=== PATIENT | female | born 1980 | race Caucasian/White ===

== ENCOUNTER 2021-04-28 10:22 | Emergency (ER) | payer OTHER ==
[~2021-04-28] VITALS: Ht 162.6 cm; Wt 71.7 kg
[2021-04-28] MEDS ORDERED: PRENTAB53 PO (10:30)
[2021-04-28 11:57] LABS: BASO % 0.3 % (0.0-1.0); EOS % 0.5 % (0.0-3.0); HEMATOCRIT 42.9 % (36.0-47.0); HEMOGLOBIN 13.7 g/dl (12.0-15.5); LYMPH # 1.3 10^3/uL (1.5-5.0); LYMPH % 17.4 % (24.0-44.0); MEAN CORPUSCULAR HEMOGLOBIN 28.8 pg (27.0-33.0); MEAN CORPUSCULAR HGB CONC 31.9 g/dl (32.0-36.5); MEAN CORPUSCULAR VOLUME 90.1 fl (80.0-96.0); MONO # 0.4 10^3/uL (0.0-0.8); MONO % 4.8 % (2.0-8.0); NEUTROPHILS # 5.9 10^3/uL (1.5-8.5); NEUTROPHILS % 76.6 % (36.0-66.0); PLATELET COUNT, AUTOMATED 345 10^3/uL (150-450); RED BLOOD COUNT 4.76 10^6/uL (4.00-5.40); WHITE BLOOD COUNT 7.7 10^3/uL (4.0-10.0)
--- NOTE | 2021-04-28 12:28 | REP ---
INDICATION: vaginal bleeding, 10 weeks . COMPARISON: None. TECHNIQUE: Transvesical and transvaginal imaging FINDINGS: Uterus measures 10.7 x 6.3 x 7 cm. Within the uterus there is an anechoic structure with increased echoes surrounding it consistent with a decidual reaction. This is located in the lower uterine segment/upper cervical region. Within the gestational sac there is echogenic material consistent with a pole the mean crown-rump length measurement of which is consistent with a 6 week 3 day gestational age. Doppler interrogation of the pole shows no evidence of cardiac activity. The left ovary was not seen transvesically or transvaginal appeared The right ovary measures 2.5 x 1.4 x 2.2 cm and is within normal limits with an RI of 0.69 Seen within the fundal portion of the uterus a mixed echo structure was noted measuring approximately 4 x 4.8 x 4.2 cm IMPRESSION: The gestational sac is positioned low within the uterus as described above, in addition, there is no cardiac activity. Findings consistent with impending spontaneous , however, clinical correlation and close follow-up is recommended. There is evidence of uterine myomatous changes as described above. I have no priors for comparison. Other findings as described above. <Electronically signed by Suleman Martines > 04/28/21 [id number]
[2021-04-28 12:48] LABS: BLOOD UREA NITROGEN 5 MG/DL (7-18); CALCIUM LEVEL 8.7 MG/DL (8.5-10.1); CARBON DIOXIDE LEVEL 26 MEQ/L (21-32); CHLORIDE LEVEL 107 MEQ/L (98-107); CREATININE FOR GFR 0.58 MG/DL (0.55-1.30); GLOMERULAR FILTRATION RATE > 60.0 (>58); GLUCOSE, FASTING 96 MG/DL (70-100); HCG, SERUM QUANTITATIVE 6202 MIU/ML; POTASSIUM SERUM 4.2 MEQ/L (3.5-5.1); SODIUM LEVEL 137 MEQ/L (136-145)
[2021-04-28 14:54] VITALS: BP 155/78
== END 2021-04-28 15:06 | disposition home or self-care (01) ==
LOC: M ED 10:22
DX: O03.9 Complete or unspecified spontaneous abortion without complication (principal); O09.521 Supervision of elderly multigravida, first trimester; Z3A.01 Less than 8 weeks gestation of pregnancy

== ENCOUNTER → 2021-05-01 | Outpatient (CLI) | payer OTHER ==
[~2021-05-01] MED LIST: IBUP-1022 PO; PRENTAB53 PO
== END ==
LOC: M LAB 09:06
PROVIDERS: ATTEND Obstetrics & Gynecology
DX: O02.1 Missed abortion (principal)

== ENCOUNTER 2021-05-02 23:24 | Emergency (ER) | payer OTHER ==
[~2021-05-02] VITALS: Ht 162.6 cm; Wt 72.6 kg
[~2021-05-02 23:24] MED LIST changes: -IBUP-1022 PO
[2021-05-02] MEDS ORDERED: IBUP-1022 PO (23:40)
[2021-05-03 00:48] LABS: BASO % 0.2 % (0.0-1.0); EOS % 0.1 % (0.0-3.0); HEMATOCRIT 27.6 % (36.0-47.0); LYMPH # 1.2 10^3/uL (1.5-5.0); LYMPH % 8.9 % (24.0-44.0); MEAN CORPUSCULAR HEMOGLOBIN 29.3 pg (27.0-33.0); MEAN CORPUSCULAR HGB CONC 32.6 g/dl (32.0-36.5); MEAN CORPUSCULAR VOLUME 89.9 fl (80.0-96.0); MONO # 0.5 10^3/uL (0.0-0.8); MONO % 4.1 % (2.0-8.0); NEUTROPHILS # 11.4 10^3/uL (1.5-8.5); NEUTROPHILS % 86.2 % (36.0-66.0); PLATELET COUNT, AUTOMATED 285 10^3/uL (150-450); RED BLOOD COUNT 3.07 10^6/uL (4.00-5.40); WHITE BLOOD COUNT 13.2 10^3/uL (4.0-10.0)
[2021-05-03 00:59] LABS: INR 0.96
[2021-05-03 01:00] LABS: PARTIAL THROMBOPLASTIN TIME 28.8 SECONDS (24.2-38.5)
[2021-05-03 01:16] LABS: BLOOD UREA NITROGEN 9 MG/DL (7-18); CALCIUM LEVEL 8.4 MG/DL (8.5-10.1); CARBON DIOXIDE LEVEL 24 MEQ/L (21-32); CHLORIDE LEVEL 107 MEQ/L (98-107); CREATININE FOR GFR 0.59 MG/DL (0.55-1.30); GLOMERULAR FILTRATION RATE > 60.0 (>58); GLUCOSE, FASTING 116 MG/DL (70-100); POTASSIUM SERUM 3.5 MEQ/L (3.5-5.1); SODIUM LEVEL 138 MEQ/L (136-145)
[2021-05-03] MEDS ORDERED: NS 1,000 ML IV ONE (02:15)
[2021-05-03 03:32] LABS: HCG, SERUM QUANTITATIVE 1141 MIU/ML
--- NOTE | 2021-05-03 04:26 | REPVR ---
PROCEDURE INFORMATION: Exam: US First Trimester, Transabdominal Exam date and time: 05/03/2021 2:44 AM Age: 40 years old Clinical indication: Lmp or gestational age (in weeks): Known ab; Antepartum complications; Bleeding; ; Additional info: Incomplete ab, continued vaginal bleeding TECHNIQUE: Imaging protocol: Real-time transabdominal obstetrical ultrasound of the maternal pelvis and a first trimester , less than 14 weeks 0 days, with image documentation. COMPARISON: No relevant prior studies available. FINDINGS: Gestation: No gestational sac is seen. MATERNAL: Uterus: The uterus measures 12.8 cm in its cephalocaudad dimension and 5.9 x 6.7 cm in its AP and lateral dimensions. There is a rounded myometrial nodule on the right measuring 3.9 x 3.1 x 4.1 cm consistent with a fibroid. The endometrium measures 15 mm with minimal fluid within the fundal endometrium. Heterogeneous thickening of the lower uterine segment measuring 3.0 cm in thickness. Cervix: Unremarkable. Right adnexa: The right ovary measures 3.0 x 1.7 x 2.4 cm and demonstrates normal Doppler waveforms and color flow. Left adnexa: The left ovary measures 2.3 x 2.7 x 2.0 cm and demonstrates color flow and normal arterial and venous Doppler waveforms. Intraperitoneal space: No intraperitoneal free fluid. IMPRESSION: 1. No intrauterine gestational sac is identified. Findings may reflect recent spontaneous AB. Ectopic is not excluded. Serial beta hCG levels may be of benefit for further evaluation. 2. Minimal fluid is noted within the fundal endometrial cavity with heterogeneous thickening in the lower uterine segment which may reflect blood clot and residua of recent AB or possibly AB in progress. 3. Uterine fibroid measuring 3.9 x 3.1 x 4.1 cm. 4. Otherwise negative pelvic sonogram. Electronically signed by: Agustín Shelton On 05/03/2021 04:25:46 AM
[2021-05-03 04:53] LABS: RSV AMPLIFICATION NEGATIVE (NEGATIVE)
[2021-05-03 05:15] VITALS: BP 156/67
[2021-05-03] MEDS ORDERED: METHYLERGONOVINE MALEATE 0.2 MG TAB PO ONE (05:40)
[2021-05-03] MEDS ORDERED: METH0.2T53 PO (05:43)
--- NOTE | 2021-05-03 07:27 | CR.PDOC ---
General Date of Consultation: May 03, 2021 Consultation REASON FOR CONSULTATION/CHIEF COMPLAINT: heavy bleeding, miscarriage HISTORY OF PRESENT ILLNESS: Kerrie is a 40yo with recent diagnosis of miscarriage on 04/28 when she presented to the ER at [facility] with vaginal bleeding, re-presenting overnight for heavy vaginal bleeding. Ultrasound on 04/28 showed a gestational sac low in the uterus with a pole measuring c/w 6w3d having absent FCA. hcg quant was 6,202 and blood type A pos. She was counseled on that day regarding option for expectant management vs medical vs surgical and she elected for expectant management. She notes that after that, she had some episodes of period-like bleeding, but nothing extremely heavy until last night. She states last night she had very heavy bleeding, to the extent that she was soaking through more than 1 pad in an hour. She had cramping as well, but no lightheadedness/dizziness. She is not sure if she passed tissue since she spent quite a bit of time on the toilet and passed material/blood into the toilet. hcg quant was repeated on 05/01: 1,861 and again last night: 1,141. H/H was noted to have decreased to 9/27.6 from 13.7/32.9. Ultrasound was repeated last night and showed minimal fluid in fundal endometrial cavity with heterogeneous thickening in the lower uterine segment, possibly blood clot or sab in process. I was unable to see patient right away when consulted secondary to multiple deliveries that occurred on labor and delivery successively, but by the time I went to see her, she noted that her bleeding had greatly subsided to the point that she was only essentially spotting. ALLERGIES: Please see below. HOME MEDICATIONS: Please see below. PAST MEDICAL HISTORY: 1. Benign PAST SURGICAL HISTORY: 1. section x2 FAMILY HISTORY: Non-contributory SOCIAL HISTORY: . was a surprise and patient has two sons, ages 7 and 11. Patient and her family are moving to this area from [place]. No ETOH/tobacco/illicit drug use REVIEW OF SYSTEMS: All negative except what is mentioned in HPI PHYSICAL EXAMINATION: VITAL SIGNS: Please see below. GENERAL APPEARANCE: WDWN, resting comfortably in bed ABDOMEN: soft, NTTP, no guarding/rebound EXTREMITIES: no edema of BLE PSYCHIATRIC: appropriate affect LABORATORY DATA: Please see below. ASSESSMENT/PLAN: Patient has recent diagnosis of sab and based on today's u/s findings and what she tells me in regards to her bleeding, it seems that she has now passed the material related to the . There may be some clot still present in lower uterine segment, so I offered patient the option of PO methergine series for 24hr which she is amenable to. I will try to organize a close interval follow up in the [facility] office for patient and she should be called for appt within 1 week. I discussed return precautions with her. Rh positive, NO need for rhogam. Vital Signs/I&O Vital Signs Date Time Temp Pulse Resp B/P (MAP) Pulse Ox O2 Delivery O2 Flow Rate FiO2 05/03/21 05:15 86 14 156/67 (96) 98 Room Air 05/02/21 23:25 97.7 I&O- Last 24 Hours up to 6 AM 05/03/21 06:00 Intake Total 1000 ml Balance 1000 ml Laboratory Data Labs 24H Laboratory Tests 2 05/03/21 00:32: Immature Granulocyte % (Auto) 0.5, Neutrophils (%) (Auto) 86.2H, Lymphocytes (%) (Auto) 8.9L, Monocytes (%) (Auto) 4.1, Eosinophils (%) (Auto) 0.1, Basophils (%) (Auto) 0.2, Neutrophils # (Auto) 11.4H, Lymphocytes # (Auto) 1.2L, Monocytes # (Auto) 0.5, Eosinophils # (Auto) 0.0, Basophils # (Auto) 0.0, Nucleated Red Blood Cells % (auto) 0.0, Prothrombin Time 13.0, Prothromb Time International Ratio 0.96, Activated Partial Thromboplast Time 28.8, Anion Gap 7L, Glomerular Filtration Rate > 60.0, Calcium Level 8.4L, Human Chorionic Gonadotropin, Quant 1141 05/03/21 03:59: Coronavirus (COVID-19)(PCR) NEGATIVE, Influenza Type A (RT-PCR) NEGATIVE, I nfluenza Type B (RT-PCR) NEGATIVE, Respiratory Syncytial Virus (PCR) NEGATIVE CBC/BMP Laboratory Tests 05/03/21 00:32 Allergies Coded Allergies: No Known Allergies (Unverified , 04/28/21) Home Medications Scheduled Ibuprofen (Ibuprofen) 600 Mg Tablet, 600 MG PO TID for pain for 10 Days, #30 (R eported) with food Methylergonovine Maleate (Methergine) 0.2 Mg Tablet, 1 TAB PO Q6H for 2 Days, #4 Anastasia Wayne MD May 03, 2021 07:16
== END 2021-05-03 05:58 | disposition home or self-care (01) ==
LOC: M ED 23:24
DX: O03.4 Incomplete spontaneous abortion without complication (principal); O09.521 Supervision of elderly multigravida, first trimester; O34.11 Maternal care for benign tumor of corpus uteri, first trimester; Z87.59 Personal history of other complications of pregnancy, childbirth and the puerperium